=== PATIENT | male | born 1945 | race Caucasian/White ===

== ENCOUNTER 2019-09-18 10:07 | Emergency (ER) | payer OTHER, MEDICAID ==
[~2019-09-18 10:07] MED LIST: ALLO300T2 PO; BENA40TA8 PO; COLC0.6T67 PO; HYDR-1189 PO; METO100T14 PO; NOR10 PO; PENT400T17 PO; TRAM50TA2 PO
--- NOTE | 2019-09-18 10:11 | NUR ---
PTS FAMILY IN TRIAGE STATES THAT THEY ARE HERE FOR ER SURGERY BECAUSE THEY DID NOT WANT TO WAIT FOR ORTHO REFERRAL. EXPLAINED TO THEM THAT WE DO NOT DO ORTHO SURGERY IN THE ER, FAMILY DECIDED TO TAKE PT TO [facility] AND TO GO TO ORTHO APPT. PTS FAMILY DECIDED NOT TO HAVE PT TRIAGED AND TO LEAVE. DR WAYNE, ADMITTING, AND DIRECTOR INFORMED.
== END 2019-09-18 10:11 | disposition left against medical advice (07) ==
LOC: SED 10:07
DX: M79.602 Pain in left arm (principal); Z53.21 Procedure and treatment not carried out due to patient leaving prior to being seen by health care provider